=== PATIENT | female | born 2000 | race Caucasian/White ===

== ENCOUNTER 2020-04-06 15:14 | Emergency (ER) | payer MEDICARE, MEDICAID ==
[~2020-04-06] VITALS: Ht 142.2 cm; Wt 70.3 kg
[2020-04-06 15:20] VITALS: BP 107/78
[2020-04-06] MEDS ORDERED: PENI500T2 PO (16:13)
== END 2020-04-06 16:25 | disposition home or self-care (01) ==
LOC: ER 15:15
DX: K04.7 Periapical abscess without sinus (principal); R68.84 Jaw pain; Z79.2 Long term (current) use of antibiotics
CPT/HCPCS: 99283